=== PATIENT | female | born 1955 | race Caucasian/White ===

== ENCOUNTER 2023-04-05 12:47 | Outpatient (REF) | payer MEDICARE, SELFPAY ==
--- NOTE | ~2023-04-05 | XR_ITS ---
STUDY: Standing knees, right knee INDICATION: Bilateral knee pain COMPARISON: None TECHNIQUE: AP standing knee, 2 view right knee FINDINGS: Right knee is slightly higher than the left on standing view. Moderate medial knee joint narrowing. Patellar spurring. No right suprapatellar effusion, fracture or dislocation. XR/XR knee RT 2V IMPRESSION: Degenerative type changes right knee. No acute bony pathology.
--- NOTE | ~2023-04-05 | XR_ITS ---
STUDY: Standing knees, right knee INDICATION: Bilateral knee pain COMPARISON: None TECHNIQUE: AP standing knee, 2 view right knee FINDINGS: Right knee is slightly higher than the left on standing view. Moderate medial knee joint narrowing. Patellar spurring. No right suprapatellar effusion, fracture or dislocation. XR/XR knee standing BI IMPRESSION: Degenerative type changes right knee. No acute bony pathology.
== END 2023-04-05 12:48 | disposition home or self-care (01) ==
LOC: HO.HOSX 12:47
PROVIDERS: Visit Provider Orthopaedic Surgery
DX: M25.561 Pain in right knee (principal)
CPT/HCPCS: 73560; 73565; 99202

== ENCOUNTER 2023-04-05 12:53 | Outpatient (AMB) | payer MEDICARE, SELFPAY ==
--- NOTE | 2023-04-05 13:24 | A.OFFVIS_ITS ---
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 She slid on rock when hiking in January of 2023. She ices and elevates to help with the pain. X rays updated today in the office. Allergies sulfamethoxazole [From Bactrim] Allergy (Mild, Unverified 04/05/23 13:46) UNKNOWN trimethoprim [From Bactrim] Allergy (Mild, Unverified 04/05/23 13:46) UNKNOWN Iodinated Contrast Media [IV CONTRAST] Allergy (Unknown, Unverified 04/05/23 13:46) UNKNOWN Medication List - Last Reconciled 04/05/23 by Cleo Willis RN atorvastatin 10 mg PO DAILY metoprolol succinate ER 50 mg PO DAILY rivaroxaban (Xarelto) 10 mg PO DAILY HPI EC TEACHER-right knee pain HPI Details Rosana is a 67 year old woman who presents with complaints of right knee pain.She says while out hiking ~2 months ago, she slipped on a rock and fell onto her right knee. She has had pain and swelling in her knee since her fall, which improves somewhat with ice and elevation, but returns quickly. Review of Systems Const All systems reviewed & are unremarkable except as noted in HPI and below Physical Exam Const General: no acute distress, alert and awake Orientation/consciousness: patient oriented x3 HEENT Head: Yes normocephalic and Yes atraumatic Eyes EOM: EOMs intact bilaterally Resp Effort & Inspection: normal respiratory effort and able to speak in complete sentences Cardio Jugular venous distension: no JVD Skin General skin exam: turgor normal Rashes: no rashes Neuro General: patient oriented x3 Extrem Other: Right Knee: TTP anterior knee that is mild Medial comaprtemnt TTP Varus alignement Psych Appearance: grossly normal Affect: normal affect Attitude: cooperative Results Reviewed Results Reviewed: I personally reviewed relevant radiographs Right knee with medial comparment OA and lateral TF subluxation Assessment & Plan Assessment & Plan (1) Right knee pain: Code(s): M25.561 - Pain in right knee Plan: This is a 67 year old woman with right knee pain, S/P fall, DOI: 01/2023. She is active and healthy and radiographs reveal OA. She has pain with daily activity, along with effusion, which improves somewhat with RICE. I discussed her diagnosis and treatment options. I recommend PT and prn follow up. Orders: Orders XR knee standing BI 04/05/23 M25.569 - Pain in unspecified knee XR knee RT 2V 04/05/23 M25.569 - Pain in unspecified knee PT Evaluation and Treatment Today M25.561 - Pain in right knee Coding Level of Care Code New Pt Level 4 (35889) Diagnoses Right knee pain M25.561
== END 2023-04-05 14:10 | disposition home or self-care (01) ==
PROVIDERS: PCP Internal Medicine; Visit Provider Orthopaedic Surgery
DX: M25.561 Pain in right knee (principal)
CPT/HCPCS: 99203

== ENCOUNTER 2024-06-17 07:57 | Day surgery (SDC) | payer MEDICARE, OTHER, SELFPAY ==
[2024-06-13 14:06] VITALS: BMI 25.9
--- NOTE | 2024-06-16 09:09 | HO.ANESPROP2 ---
HPI - Anesthesia Eval Consult details Narrative: 68yo F for Colonoscopy Follows [facility]. Stable at 08/2023 office visit with routine yearly f/u. Xarelto for afib, CAD PMFSH Active Problems Active Problems: All Active Problems Right knee pain (Acute) Past Medical History Medical History (Updated 06/13/24 @ 14:02 by Melania Alejandro, RN) CAD (coronary artery disease) Atrial fibrillation HTN (hypertension) Hyperlipidemia Diverticulosis IBS (irritable bowel syndrome) Tubular adenoma Surgical History Surgical History (Updated 06/13/24 @ 14:02 by Melania Alejandro RN) H/O wisdom tooth extraction Hx of tonsillectomy Hx of appendectomy H/O colonoscopy Meds Allergies Allergy/AdvReac Type Severity Reaction Status Date / Time sulfamethoxazole Allergy Mild UNKNOWN Unverified 04/05/23 13:46 [From Bactrim] trimethoprim [From Bactrim] Allergy Mild UNKNOWN Unverified 04/05/23 13:46 Iodinated Contrast Media Allergy Unknown UNKNOWN Unverified 04/05/23 13:46 [IV CONTRAST] latex Allergy Unknown Verified 06/13/24 14:03 Home Medications ?Medication ?Instructions ?Recorded ?Confirmed ?Last Taken ?Type metoprolol succinate 50 mg 50 mg PO DAILY 04/05/23 06/13/24 Unknown History tablet,extended release 24 hr atorvastatin 40 mg tablet 40 mg PO DAILY 06/13/24 06/13/24 Unknown History rivaroxaban 20 mg tablet (Xarelto) 20 mg PO DAILY 06/13/24 06/13/24 Unknown History Exam Height,Weight and Vital Signs: Height 5 ft 6.5 in Weight 73.936 kg Assessment and Plan Assessment Anesthesia Assessment: Chart Reviewed
--- OUTSIDE RECORDS SUMMARY | 2024-06-17 08:00 | XMS_ITS ---
Author Organization [facility] Address [address] [place] [phone] Care Team Providers Care Utility Aide Name Role Phone ALLY BAKER Primary Care Provider UnavailYuri Miller Jr Unavailable [phone] REASON FOR VISIT new insurance Encounters Encounter Location Date Provider Diagnosis [facility] [address] [place] [phone] 04/08/2024 Yuri Chahal Jr PLAN OF TREATMENT Next Appt Details Provider Name:Yuri herndon Jr, 06/17/2024 09:40:00 AM, [address] [place] [address] , [place], [place], [phone],
--- OUTSIDE RECORDS SUMMARY | 2024-06-17 08:01 | XMS_ITS ---
Author Organization [facility] Address [address] [place] [address] Care Team Providers Care Hoop Driving Machine Operator Name Role Phone ALLY BAKER Primary Care Provider UnavailYuri Miller Jr REASON FOR VISIT screening Encounters Encounter Location Date Provider Diagnosis [facility] [address] [place] [phone] 06/17/2024 Yuri Chahal Jr PLAN OF TREATMENT Next Appt Details Provider Name:Yuri herndon Jr, 06/17/2024 09:40:00 AM, [address] [place] [address], [phone],
--- OUTSIDE RECORDS SUMMARY | 2024-06-17 08:01 | XMS_ITS | Clinical Summary ---
Author Organization [facility] Address [address] [place] [address] Care Team Providers Care Mannequin Decorator Name Role Phone Estevan Pinto Primary Care Provider [phone] Allergies Active Allergy Reactions Criticality Noted Date Comments Iodine Hives 06/26/2017 Latex Rash 06/26/2017 Potassium 10/18/2020 Sulfamethoxazole-Trimethoprim Hives 2017 Medications metoprolol succinate (TOPROL-XL) 50 mg 24 hr tablet Take 0.5 tablets (25 mg total) by mouth 1 (one) time each day. 02/13/2024 Active rivaroxaban (Xarelto) 20 mg tablet Take 1 tablet (20 mg total) by mouth 1 (one) time each day. 02/13/2024 Active atorvastatin (LIPITOR) 40 mg tablet Take 1 tablet (40 mg total) by mouth 1 (one) time each day. 02/13/2024 Active Active Problems Problem Noted Date Diagnosed Date CAD (coronary artery disease) 10/19/2020 Overview (05/21/2024): Stable coronary disease by catheterization with 70% circumflex, 30% LAD lesion in 2018. On atorvastatin. No aspirin due to Xarelto for atrial fibrillation. Last Assessment & Plan: No active angina. Excellent lipid profile. She will get that updated at her next primary care visit but given her LDL is well below 50 she should really continue with her current statin dose and healthy diet. No clear indication for stress testing. PAF (paroxysmal atrial fibrillation) 10/19/2020 Overview (05/21/2024): 1 well-documented episode of paroxysmal atrial fibrillation with other runs of PAT noted. Gaston score elevated due to age, female gender and coronary disease. Last Assessment & Plan: Pam and I had a long discussion regarding pros and cons of continued anticoagulation. Given her Chadsvasc score of 3 with documented coronary disease I did recommend we continue with that. I went through the very strict screening that would be required if we were to come off of an anticoagulant potentially placing an implantable loop recorder. We did agree to drop the metoprolol to 25 mg daily to see if her fatigue is improved. I was reluctant to come off of it completely given her coronary disease. She does not have much atrial fibrillation and is not sure she has had any documented episodes over the past year such that she will continue to be conservative in her treatment. She understands if the ablation is available and that her antiarrhythmic medications we could use should the atrial fibrillation burden worsen. Encounters Date Type Department Care Team Description 05/19/2024 Telephone [facility] - [address] [facility] [address] [place] [phone] Saul Palencia MA 04/16/2024 Telephone [facility] - [address] [place] [phone] Michael Nunez MD medication from Last 3 Months Family History Medical History Relation Name Comments Heart attack Father Hypertension Father Relation Name Status Comments Father Social History Tobacco Use Types Packs/Day Years Used Date Smoking Tobacco: Former Smokeless Tobacco: Never Alcohol Use Standard Drinks/Week Comments Yes 0 (1 standard drink = 0.6 oz pur e alcohol) Comments Unknown Sex and Gender Information Value Date Recorded Sex Assigned at Not on file Legal Sex Female 11:58 AM EST Gender Identity Not on file Sexual Orientation Not on file Obstetrics History Last Filed Vital Signs Vital Sign Reading Time Taken Comments Blood Pressure 112/76 08/30/2023 1:14 PM EDT Sitting R Arm Pulse 53 08/30/2023 1:14 PM EDT Temperature - - Respiratory Rate - - Oxygen Saturation - - Inhaled Oxygen Concentration - - Weight 75.7 kg (166 lb 12.8 oz) 08/30/2023 1:14 PM EDT Height 170.2 cm (5' 7 ) 08/30/2023 1:14 PM EDT Body Mass Index 26.12 08/30/2023 1:14 PM EDT Plan of Treatment Upcoming Encounters Date Type Department Care Team (Late st Contact Info) Description 10/21/2024 9:25 AM EDT Office Visit [facility] [address] [facility] [address] [place] [phone] Michael Nunez MD [address] [place] [address] Health Maintenance Due Date Last Done Comments Breast Cancer Screening 1955 DTaP,Tdap,and Td Vaccines (1 - Tdap) 1960 Pneumococcal Vaccine: 50+ Ye ars (1 of 1 - PCV) 07/22/2003 Zoster Vaccines (1 of 2) 07/22/2003 RSV Immunization Patients 60 + Years Old (1 - Risk 60-74 years 1-dose series) 2013 Cholesterol Screening (Lipid Panel) 04/15/2022 Colorectal Cancer Screening: Colonoscopy 04/15/2022 Depression Screening 04/15/2022 Falls Risk Assessment 04/15/2022 Hepatitis C Screening 04/15/2022 Hypertension/CHF/CAD Annual BMP Blood Test 04/15/2022 Medicare Annual Wellness Visit 04/15/2022 Osteoporosis Screening (Bone Density Screening) 04/15/2022 Social Influencers of Health Screening 04/15/2022 COVID-19 Vaccine ( - 2023-2 5 season) 2024 Influenza Vaccine (#1) 2024 HIB Vaccines Aged Out No longer eligi ble based on patient's age to complete this topic HPV Vaccines Aged Out No longer eligi ble based on patient's age to complete this topic Hepatitis A Vaccines Aged Out No long er eligible based on patient's age to complete this topic Hepatitis B Vaccines Aged Out No long er eligible based on patient's age to complete this topic IPV Vaccines Aged Out No longer eligi ble based on patient's age to complete this topic MMR Vaccines Aged Out No longer eligi ble based on patient's age to complete this topic Meningococcal ACWY Vaccine Aged Out N o longer eligible based on patient's age to complete this topic Meningococcal B Vacine Aged Out No lo nger eligible based on patient's age to complete this topic RSV Immunization Patients Un praveena 20 months Aged Out No longer eligible b ased on patient's age to complete this topic Varicella Vaccines Aged Out No longer eligible based on patient's age to complete this topic Insurance MEDICARE Care Teams Mannequin Decorator Relationship Specialty Start Date End Date Estevan Pinto PA PCP - General 08/30/23
--- OUTSIDE RECORDS SUMMARY | 2024-06-17 08:01 | XMS_ITS ---
Author Organization [facility] Address [address] [place] [phone] Care Team Providers Care Helmet Hat Puncher Name Role Phone OLIVIA ALLY Primary Care Provider Yuri Brown Jr Unavailable ALLERGIES Allergen (clinical drug ingredient) Drug/Non Drug Allergy documented on EMR Reaction Allergy Type Onset Date Status Latex Gloves Unknown Drug Allergy Acti ve sulfamethoxazole / trimethoprim Bactrim Unknown Drug Allergy Active CT scan dye (uncoded) Unknown Allergy Active REASON FOR VISIT Patient presents today for a consultation MEDICATIONS Medication SIG (Take, Route, Frequency, Duration) Notes Start Date End Date Status MiraLax (colon prep) 17 GM/SCOOP mixed with Gatorade or Crystal Light Orally begin at 5:00 p.m. the day before the procedure for 1 day 05/19/2024 Active Metoprolol Succinate 50 MG as directed Orally 05/07 Active Xarelto 20 MG 1 tablet with food O rally Once a day for 30 day(s) Active Atorvastatin Calcium 40 MG 1 tablet Oral ly Once a day for 30 day(s) 05/19/2024 Active PROBLEMS Problem Type ICD Code Onset Dates Problem Status W/U Status Risk SNOMED Code Notes Problem Colon cancer screening (Z12.11) Active confirmed 911962083 Problem Irritable bowel syndrome with constipation and diarrhea (K58.2) Active confirmed 22955938 Problem watermelon inspector (current) use of anticoagulants (Z79.01) Active confirmed 926299568 VITAL SIGNS BMI 25.91 kg/m2 05/19/2024 Blood pressure systolic 000 mm Hg 05/19/19 25 Blood pressure diastolic 00 mm Hg 025 Height 66.50 in 05/19/2024 Temperature 96.7 degrees Fahrenheit 05/19/19 25 Weight 163 lbs 05/19/2024 Encounters Encounter Location Date Provider Diagnosis [facility] [address] [place] [address] 05/19/2024 Yuri Chahal Jr Colon cancer screening Z12.11 ; Irritable bowel syndrome with constipation and diarrhea K58.2 and watermelon inspector (current) use of anticoagulants Z79.01 ASSESSMENTS Encounter Date Diagnosis Assessment Notes Treatment Notes Treatment Clinical Notes 05/19/2024 Colon cancer screening (ICD-10 - Z12.11) Colonoscopy material was printed 05/19/2024 Irritable bowel syndrome with constipation and diarrhea (ICD-10 - K58.2) 05/19/2024 watermelon inspector (current) use of anticoagulants (ICD-10 - Z79.01) PLAN OF TREATMENT Medication Medication Name Sig Start Date Stop Date Notes MiraLax (colon prep) 17 GM/SCOOP mixed with Gatorade or Crystal Light Orally begin at 5:00 p.m. the day before the procedure for 1 day 05/19/2024 Treatment Notes Assessment Notes Colon cancer screening Colonoscopy mater ial was printed Future Test Test Name Order Date COLONOSCOPY 05/19/2024 Next Appt Details Follow Up: 1 Year, Reason: Provider Name:Yuri herndon Jr, 06/17/2024 09:40:00 AM, [address] [place] [address] , [place], [place], [phone], Progress Notes * Examination Category Sub-Category Detail Notes General Examination GENERAL APPEARANCE: in no ac [place] distress HEAD: normocephalic EYES: sclera non-icteric NECK/THYROID: no lymphadenopathy HEART: S1, S2 normal, no mu rmurs CHEST: normal shape and exp ansion LUNGS: clear to auscultatio n bilaterally ABDOMEN: soft, nontender, non distended, bowel sounds present, no organomegaly SKIN: anicteric EXTREMITIES: no clubbing, cyanosi s, or edema PSYCH: cognitive function i ntact ORAL CAVITY: mucosa moist
--- OUTSIDE RECORDS SUMMARY | 2024-06-17 08:01 | XMS_ITS | Patient Health Record ---
Author Organization [facility] Address [address] [place] [address] Care Team Providers Care Cane Piler Name Role Phone OLIVIA ALLY Primary Care Provider Yuri Brown Jr Unavailable ALLERGIES Allergen (clinical drug ingredient) Drug/Non Drug Allergy documented on EMR Reaction Allergy Type Onset Date Status Latex Gloves Unknown Drug Allergy Acti ve sulfamethoxazole / trimethoprim Bactrim Unknown Drug Allergy Active CT scan dye (uncoded) Unknown Allergy Active REASON FOR REFERRAL No Information MEDICATIONS Medication SIG (Take, Route, Frequency, Duration) Notes Start Date End Date Status MiraLax (colon prep) 17 GM/SCOOP mixed with Gatorade or Crystal Light Orally begin at 5:00 p.m. the day before the procedure for 1 day 05/19/2024 Active Xarelto 20 MG 1 tablet with food O rally Once a day for 30 day(s) Active Metoprolol Succinate 50 MG as directed Orally 05/07 Active Atorvastatin Calcium 40 MG 1 tablet Oral ly Once a day for 30 day(s) 05/19/2024 Active IMMUNIZATIONS Vaccine Route Administration Date Status Comme nts Influenza Unknown 12/25/2023 Administered SOCIAL HISTORY Sex Assigned At : Social History Observation Description Sex Assigned At Unknown PROBLEMS Problem Type ICD Code Onset Dates Problem Status W/U Status Risk SNOMED Code Notes Problem Colon cancer screening (Z12.11) Active confirmed 369246455 Problem intermediate (current) use of anticoagulants (Z79.01) Active confirmed 062026336 Problem Irritable bowel syndrome with constipation and diarrhea (K58.2) Active confirmed 68966212 VITAL SIGNS Temperature 96.7 degrees Fahrenheit 05/19/2024 Blood pressure diastolic 00 mm Hg 05/19/2024 Height 66.50 in 05/19/2024 Blood pressure systolic 000 mm Hg 05/19/2024 Weight 163 lbs 05/19/2024 BMI 25.91 kg/m2 05/19/2024 Encounters Encounter Location Date Provider Diagnosis [facility] [address] [place] [phone] 06/17/2024 Yuri Chahal Jr [facility] [address] [place] [phone] 03/13/2024 Yuri Chahal Jr [facility] [address] [place] [phone] 05/19/2024 Yuri Chahal Jr Colon cancer screening Z12.11 ; Irritable bowel syndrome with constipation and diarrhea K58.2 and bed bug exterminator (current) use of anticoagulants Z79.01 [facility] [address] [place] [phone] 10/18/2023 Yuri Chahal Jr [facility] [address] [place] [phone] 01/30/2024 Yuri Chahal Jr [facility] [address] [place] [phone] 04/08/2024 Yuri Chahal Jr ASSESSMENTS Encounter Date Diagnosis Assessment Notes Treatment Notes Treatment Clinical Notes 05/19/2024 Colon cancer screening (ICD-10 - Z12.11) Colonoscopy material was printed 05/19/2024 Irritable bowel syndrome with constipation and diarrhea (ICD-10 - K58.2) 05/19/2024 bed bug exterminator (current) use of anticoagulants (ICD-10 - Z79.01) PLAN OF TREATMENT Pending Test Test Name Order Date CBC w/o DIFF 01/15/2015 CELIAC DISEASE ANTIBODY PANEL 01/15/2015 TSH REFLEX FREE T4 01/15/2015 Future Test Test Name Order Date COLONOSCOPY 01/15/2015 COLONOSCOPY 05/19/2024 Next Appt Details Provider Name:Yuri herndon Jr, 06/17/2024 09:40:00 AM, [address] [place] [address], [phone], Insurance Providers Payer Name Payer Address Payer Phone Subscriber Number Group Number Insured Name Patient Relationship to Insured Coverage Start Date Coverage End Date [place] [address] [place] [address] [id number] FARSHAD KURTIS Self - patient is the insured [employer] [address] [place] [address] [phone] [id number] FARSHAD, KURTIS Self - patient is the insured MEDICAL (GENERAL) HISTORY Medical History History ICD Code Colonoscopy 02/18, tubular adenoma, five -year followup IBS Diverticulosis Hyperlipidemia Hypertension Atrial fibrillation, paroxysmal Coronary artery disease, noncritical, me dical management Surgical History Surgery Date(Month/Year) appendectomy tonsillectomy wisdom teeth extraction Dental implants x2
--- OUTSIDE RECORDS SUMMARY | 2024-06-17 08:01 | XMS_ITS | Encounter Summary ---
Author Organization [facility] Address [address] [place] [address] Care Team Providers Care Paper Testing Supervisor Name Role Phone Estevan Pinto Primary Care Provider Encounter Details Date Type Department Care Team (Late st Contact Info) Description 05/19/2024 Telephone [facility] [address] [facility] [address] [place] [address] Saul Palencia MA Social History Tobacco Use Types Packs/Day Years Used Date Smoking Tobacco: Former Smokeless Tobacco: Never Alcohol Use Standard Drinks/Week Comments Yes 0 (1 standard drink = 0.6 oz pur e alcohol) Comments Unknown Sex and Gender Information Value Date Recorded Sex Assigned at Not on file Legal Sex Female 11:58 AM EST Gender Identity Not on file Sexual Orientation Not on file documented as of this encounter Progress Notes * Saul Palencia MA - 05/20/2024 10:05 AM EST LETTER GENERATED AND FAXED TO DR. CHAHAL'S OFFICE, . * Samara Britt NP - 05/20/2024 9:53 AM EST Per guidelines she may hold Xarelto for 48 hours prior to colonoscopy and resume 24 hours post colonoscopy- no indication for bridging Neeru Price please generate letter to this effect - thank you * Mitul Fortune - 05/20/2024 9:29 AM EST I contacted the patient and scheduled a appointment with them. I also reached out to Dr Chahal's office and spoke to Dr Chahal. He say's he only need's to know if the patient can hold Xarelto 3 days prior to colonoscopy on 06/17/24. He also stated they would need it in writing, so if possible can we fax it over to them. * Saul Palencia MA - 05/19/2024 2:02 PM EST Charlene from Dr Chahal's office- patient is scheduled for a colonoscopy 06/17. Ok for patient to hold Xarelto 3 days prior? Patient was last seen 08/30/2023. Patient is due for follow up with KANDY/ LUCAS documented in this encounter Plan of Treatment Upcoming Encounters Date Type Department Care Team (Late st Contact Info) Description 10/21/2024 9:25 AM EDT Office Visit [facility] [address] [facility] [address] [place] [address] Michael Nunez MD [address] [facility] [address] [place] [address] documented as of this encounter Visit Diagnoses Not on filedocumented in this encounter Care Teams Paper Testing Supervisor Relationship Specialty Start Date End Date Estevan Pinto PA PCP - General 08/30/23 documented as of this encounter
[2024-06-17 08:30] VITALS: BP 137/90; PULSE 67; RESP 18; TEMP 36.3; O2SAT 100; BMI 25.4
[2024-06-17] MEDS: Lactated Ringers 1,000 ML 100 ML IVCONT (08:57)
--- NOTE | 2024-06-17 10:41 | MHC.SHP ---
Pre-Procedural Eval Section A - 24 Hr Update-Section A only Date of Service: 06/17/24 Section B - Complete if H&P > 30 days Chief Complaint: screening Details of Present Illness: see H&P no changes Relevant Family History (Specify if Yes): No Relevant Social History: None Present Medications: see Short Stay Collaborative assessment Medical History: No relevant PMH Allergies: Allergies Allergy/AdvReac Type Severity Reaction Status Date / Time Iodinated Contrast Media Allergy Severe Hives Verified 06/17/24 08:57 [IV CONTRAST] latex Allergy Mild Rash Verified 06/17/24 08:56 sulfamethoxazole Allergy Mild Hives Verified 06/17/24 08:57 [From Bactrim] trimethoprim [From Bactrim] Allergy Mild Hives Verified 06/17/24 08:57 Review of Systems Sugical H&P ROS: Negative: Constitution, Cardiovascular, Respiratory, Neurological, Psychiatric, Hem-Onc, Allergic/Immunologic, Gastrointestinal, Genitourinary, Musculoskeletal, Integumentary, Endocrine and Eyes/Ears/Nose/Throat Exam Surgical H&P Exam: Normal: HEENT, Normal: Heart, Normal: Lungs, Normal: Extremities, Normal: Abdomen, Normal: Skin and Normal: Neurological Plan Diagnosis/Plan: Unchanged I have reviewed the history and physical and performed a pertinent physical examination on my patient. No changes have occurred unless specified. Time Spent With Patient Time: Total time managing care of this patient today ____ minutes.
[2024-06-17 11:11] VITALS: BP 84/45; PULSE 51; RESP 11; TEMP 36.1; O2SAT 97
[2024-06-17 11:26] VITALS: BP 115/68; PULSE 51; RESP 16; TEMP 36.1; O2SAT 97
--- NOTE | 2024-06-17 12:00 | OP_ITS ---
DATE OF SERVICE: 06/17/2024 SURGEON: Yuri Chahal MD INDICATIONS: Colon cancer screening and prior history of adenomatous colon polyps. PREOPERATIVE DIAGNOSIS: POSTOPERATIVE DIAGNOSIS: PROCEDURE PERFORMED: Colonoscopy to the terminal ileum. ESTIMATED BLOOD LOSS: COMPLICATIONS: ANESTHESIA: Monitored anesthesia care. ASSISTANTS: SPECIMENS: DESCRIPTION OF PROCEDURE: A history and physical was performed. The risks and benefits of the procedure were explained to the patient and informed consent was obtained. The patient was placed in the left lateral decubitus position. A digital rectal exam was performed and was found to be normal. The Olympus pediatric video colonoscope was introduced into the rectum and advanced to the cecum. The cecum was identified by transillumination, palpation, and identification of ileocecal valve. Examination was performed and the scope was removed. She tolerated the procedure well and was returned to recovery area in stable condition. FINDINGS: The terminal ileum was examined and appeared normal. The visualized colonic mucosa was normal. The quality of the prep was good. No polyps were identified. There was mild sigmoid diverticulosis. Retroflexed examination showed some small internal hemorrhoids. IMPRESSION: Normal colonoscopy. RECOMMENDATIONS: 1. Follow up as needed. 2. Repeat colonoscopy is recommended in 10 years for average-risk individuals. CC: . MD VERONICA Sam/VBIHA / [id number]
== END 2024-06-17 11:42 | disposition home or self-care (01) ==
PROVIDERS: PCP Physician Assistant; Visit Provider Internal Medicine Gastroenterology
PROC: 0DJD8ZZ Inspection of Lower Intestinal Tract, Via Natural or Artificial Opening Endoscopic (ICD-10-PCS; CPT 45378; principal; 2024-06-17 09:40)
DX: Z12.11 Encounter for screening for malignant neoplasm of colon (principal); Z86.0101 Personal history of adenomatous and serrated colon polyps; K57.30 Diverticulosis of large intestine without perforation or abscess without bleeding; K64.8 Other hemorrhoids; K58.2 Mixed irritable bowel syndrome; I10 Essential (primary) hypertension; I48.0 Paroxysmal atrial fibrillation; I25.10 Atherosclerotic heart disease of native coronary artery without angina pectoris; Z79.01 Long term (current) use of anticoagulants; Z79.899 Other long term (current) drug therapy; Z88.2 Allergy status to sulfonamides; Z91.040 Latex allergy status; Z91.041 Radiographic dye allergy status; Z87.891 Personal history of nicotine dependence
CPT/HCPCS: G0105; J2003; J2704